=== PATIENT | female | born 1980 | race Caucasian/White ===

== ENCOUNTER 2020-12-21 17:05 | Emergency (ER) | payer OTHER ==
[~2020-12-21] VITALS: Ht 157.5 cm; Wt 63.5 kg
[~2020-12-21 17:05] MED LIST: IBUPROFEN 600600 M1 PO
[2020-12-21 17:53] LABS: ABSOLUTE NEUTROPHILS 4.5 thou/uL (1.4-8.2); BASOPHILS 1.2 % (0.0-2.0); EOSINOPHILS 2.4 % (0.0-3.0); HEMATOCRIT 38.9 % (37.0-47.0); HEMOGLOBIN 13.7 gm/dL (12.0-15.0); LYMPHOCYTES 30.8 % (24.0-44.0); MCH 30.3 pg (26.0-34.0); MCHC 35.1 g/dL (28.0-37.0); MCV 86.2 fL (80.0-100.0); MONOCYTES 7.8 % (1.0-8.0); PLATELET COUNT 338 thou/uL (150-400); POLYS 57.8 % (36.0-66.0); RBC 4.52 mil/uL (4.20-5.00); RDW 12.5 % (10.5-14.5); WBC 7.9 thou/uL (4.0-11.0)
[2020-12-21 18:07] LABS: ANION GAP 8 mmol/L (7-16); BUN 6 mg/dL (7-18); CALCIUM 9.1 mg/dL (8.5-10.1); CHLORIDE 107 mmol/L (98-107); CO2 25 mmol/L (21-32); CREATININE 0.9 mg/dL (0.6-1.0); GLUCOSE 111 mg/dL (74-106); POTASSIUM 3.2 mmol/L (3.5-5.1); SODIUM 140 mmol/L (136-145)
[2020-12-21 19:48] VITALS: BP 119/72
--- NOTE | 2020-12-22 07:15 | EKG ---
[address] [place] [address] ELECTROCARDIOGRAM REPORT Name: SHREYA RASCON Room #: [facility]#: [id number] Admission: 12/21/20 Attend Phys: Discharge: 12/21/20 Date of : 76 Report #: [id number] [facility] ED Test Date: 2020-12-21 Test Time: 17:09:08 Pat Name: SHREYA RASCON Department: Room: Gender: F [employer]: RADHA : 1980 Requested By: Curtis Grubbs Order Number: [id number] MD: Mega Dawn Measurements Intervals [place] Rate: 88 P: 68 TX: 132 QRS: -4 QRSD: 88 T: -4 QT: 373 QTc: 452 Interpretive Statements Sinus rhythm Abnormal R-wave progression, early transition Borderline T abnormalities, diffuse leads Compared to ECG 07/10/2011 14:31:36 T-wave abnormality now present ST (T wave) deviation no longer present Electronically Signed On 12-22-2020 7:15:46 CDT by Mega Dawn [email or web address] <ELECTRONICALLY SIGNED> By: Mega Dawn MD, FACAiden 12/22/20 0715 1709 1709 Mega Dawn MD, [facility] /EPI
== END 2020-12-21 19:49 | disposition home or self-care (01) ==
LOC: ER 17:05
PROVIDERS: Nurse Practitioner
DX: R07.89 Other chest pain (principal); Z20.822 Contact with and (suspected) exposure to COVID-19; Z90.49 Acquired absence of other specified parts of digestive tract; Z79.899 Other long term (current) drug therapy